=== PATIENT | male | born 1980 | race African-American/Black ===

== ENCOUNTER 2016-12-27 02:18 | Emergency (ER) | payer BC, OTHER ==
[2016-12-27] MEDS ORDERED: SODIUM CHLORIDE 0.9% 1,000 ML IV STA (03:05)
[2016-12-27] MEDS ORDERED: ONDANSETRON 4 MG/2 ML VIAL IVP STA (03:05)
[2016-12-27] MEDS ORDERED: KETOROLAC 30 MG/ML 1 ML VIAL IVP STA (03:05)
[2016-12-27 03:30] LABS: Appearance,Urine Clear (Clear); Bilirubin,Urine Negative (Negative); Glucose,Urine (UA) Negative (Negative); Ketones,Urine Negative (Negative); Leukocyte Esterase,Urine Negative (Negative); Nitrite,Urine Negative (Negative); Protein,Urine Negative (Negative); UA Billing (MACRO vs. MICRO) CHEM; Urobilinogen,Urine <2.0 mg/dL (<2.0)
[2016-12-27 03:36] LABS: Basophils % (A) 1 %; CH 29.8; CHCM 32.8; Eosinophils # (A) 0.1 k/uL (0-0.7); Eosinophils % (A) 1 %; HCT 43.7 % (39.0-53.0); HDW 2.26; HGB 14.2 gm/dL (13.0-17.5); Luc % (Auto) 3; Lymphocytes # (A) 2.3 k/uL (1.0-4.8); Lymphocytes % (A) 30 %; MCH 29.7 pg (25.0-35.0); MCHC 32.5 g/dL (31.0-37.0); MCV 91.3 fL (80.0-100.0); Mean Platelet Volume 6.5; Monocytes # (A) 0.4 k/uL (0-1.0); Monocytes % (A) 5 %; Neutrophils # (A) 4.5 k/uL (1.3-7.7); Neutrophils % (A) 60 %; RBC 4.78 m/uL (4.30-5.90); RDW 13.1 % (11.5-15.5); WBC 7.4 k/uL (3.8-10.6); WBC (Perox) 7.56
[2016-12-27 03:42] LABS: ALT 58 U/L (21-72); AST 38 U/L (17-59); Alkaline Phosphatase 68 U/L (38-126); Amylase 90 U/L (30-110); Anion Gap 11 mmol/L; Blood Urea Nitrogen 12 mg/dL (9-20); Calcium 9.2 mg/dL (8.4-10.2); Carbon Dioxide 24 mmol/L (22-30); Chloride 106 mmol/L (98-107); Glucose 93 mg/dL (74-99); Non-African American GFR(MDRD) >60 (>60 ml/min/1.73 sqM); Potassium 4.1 mmol/L (3.5-5.1); Sodium 141 mmol/L (137-145); Total Bilirubin 0.4 mg/dL (0.2-1.3); Total Protein 6.9 g/dL (6.3-8.2)
--- NOTE | 2016-12-27 03:48 | XR ---
EXAMINATION TYPE: XR KUB DATE OF EXAM: 12/27/2016 3:23 AM COMPARISON: NONE HISTORY: Right flank pain TECHNIQUE: 2 views FINDINGS: Lung bases are clear. Bowel gas pattern is normal. There is no sign of intestinal obstructi on or pneumoperitoneum. There are no pathologic calcifications over the kidneys. There is no sign of a mass. Fecal pattern is normal. IMPRESSION: Nonacute abdomen.
--- NOTE | 2016-12-27 04:01 | ED ---
Abdominal Pain HPI - General Chief Complaint: Abdominal Pain Stated Complaint: abd pain Time Seen by Provider: 12/27/16 02:46 Source: patient, RN notes reviewed Mode of arrival: ambulatory Limitations: no limitations - History of Present Illness Initial Comments: Patient is a 36 year old male with one week of right upper quadrant pain and a multiple episodes of vomiting today. Patient reports he has a hisotyr of sick contacts with similiar symptoms of vomiting. Patient has no diarrhea, fever, chils, chest pain, shortness of breath, headache. He states that he has never had this pain before. Patient denies any significant past medical history. - Related Data Previous Rx's Medication Instructions Recorded Ondansetron [Zofran] 4 mg PO Q8HR PRN #8 tab 12/27/16 Allergies Allergy/AdvReac Type Severity Reaction Status Date / Time No Known Allergies Allergy Verified 12/27/16 02:25 Review of Systems ROS Statement: Those systems with pertinent positive or pertinent negative responses have been documented in the HPI. ROS Other: All systems not noted in ROS Statement are negative. Past Medical History Past Medical History: Asthma History of Any Multi-Drug Resistant Organisms: None Reported Past Surgical History: No Surgical Hx Reported Past Psychological History: No Psychological Hx Reported Smoking Status: Current every day smoker Past Alcohol Use History: Occasional Past Drug Use History: Marijuana General Exam - General Exam Comments Initial Comments: Patient is a well appearing 36 year old male in no acute distress. Limitations: no limitations General appearance: alert, in no apparent distress Head exam: Present: atraumatic, normocephalic, normal inspection Eye exam: Present: normal appearance, PERRL, EOMI. Absent: scleral icterus, conjunctival injection, periorbital swelling ENT exam: Present: normal exam, mucous membranes moist Neck exam: Present: normal inspection. Absent: tenderness, meningismus, lymphadenopathy Respiratory exam: Present: normal lung sounds bilaterally. Absent: respiratory distress, wheezes, rales, rhonchi, stridor Cardiovascular Exam: Present: regular rate, normal rhythm, normal heart sounds. Absent: systolic murmur, diastolic murmur, rubs, gallop, clicks GI/Abdominal exam: Present: soft, normal bowel sounds. Absent: distended, tenderness, guarding, rebound, rigid Extremities exam: Present: normal inspection, full ROM, normal capillary refill. Absent: tenderness, pedal edema, joint swelling, calf tenderness Back exam: Present: normal inspection Neurological exam: Present: alert, oriented X3, CN II-XII intact Psychiatric exam: Present: normal affect, normal mood Course Vital Signs 12/27/16 12/27/16 02:24 04:16 Temperature 98.6 F 98 F Pulse Rate 90 77 Respiratory 20 18 Rate Blood Pressure 166/91 120/68 O2 Sat by Pulse 99 99 Oximetry Medical Decision Making - Medical Decision Making Patient is a 36 year old male with no significant past medical history with one week of epigastric and RUQ pain and one day of vomiting. Patient is resting comfortably in no acute distress. Patient labs and Xray are reviewed to be negative. Patient given IV toradol, Zofran, and Fluids. Patient reports pain is improved. Iadvised patient to follow up with PCP. REturn parameters discussed. Patient given Rx for zofran. Patient understands treatment plan and will comply. - Lab Data Result diagrams: 12/27/16 02:51 12/27/16 02:51 Lab Results 12/27/16 12/27/16 12/27/16 Range/Units 02:51 02:51 02:51 WBC 7.4 (3.8-10.6) k/uL RBC 4.78 (4.30-5.90) m/uL Hgb 14.2 (13.0-17.5) gm/dL Hct 43.7 (39.0-53.0) % MCV 91.3 (80.0-100.0) fL MCH 29.7 (25.0-35.0) pg MCHC 32.5 (31.0-37.0) g/dL RDW 13.1 (11.5-15.5) % Plt Count 271 (150-450) k/uL Neutrophils % 60 % Lymphocytes % 30 % Monocytes % 5 % Eosinophils % 1 % Basophils % 1 % Neutrophils # 4.5 (1.3-7.7) k/uL Lymphocytes # 2.3 (1.0-4.8) k/uL Monocytes # 0.4 (0-1.0) k/uL Eosinophils # 0.1 (0-0.7) k/uL Basophils # 0.0 (0-0.2) k/uL Sodium 141 (137-145) mmol/L Potassium 4.1 (3.5-5.1) mmol/L Chloride 106 (98-107) mmol/L Carbon Dioxide 24 (22-30) mmol/L Anion Gap 11 mmol/L BUN 12 (9-20) mg/dL Creatinine 1.10 (0.66-1.25) mg/dL Est GFR (MDRD) Af Amer >60 (>60 ml/min/1.73 sqM) Est GFR (MDRD) Non-Af >60 (>60 ml/min/1.73 sqM) Glucose 93 (74-99) mg/dL Calcium 9.2 (8.4-10.2) mg/dL Total Bilirubin 0.4 (0.2-1.3) mg/dL AST 38 (17-59) U/L ALT 58 (21-72) U/L Alkaline Phosphatase 68 (38-126) U/L Total Protein 6.9 (6.3-8.2) g/dL Albumin 3.9 (3.5-5.0) g/dL Amylase 90 (30-110) U/L Lipase 110 (23-300) U/L Urine Color Light Yellow Urine Appearance Clear (Clear) Urine pH 6.0 (5.0-8.0) Ur Specific [place] 1.010 (1.001-1.035) Urine Protein Negative (Negative) Urine Glucose (UA) Negative (Negative) Urine Ketones Negative (Negative) Urine Blood Negative (Negative) Urine Nitrate Negative (Negative) Urine Bilirubin Negative (Negative) Urine Urobilinogen <2.0 (<2.0) mg/dL Ur Leukocyte Esterase Negative (Negative) - Radiology Data Radiology results: report reviewed Interpreted by me: KUB is negative for any acute process. Disposition Clinical Impression: Gastroenteritis Disposition: HOME SELF-CARE Condition: Good Instructions: Gastroenteritis (ED) Additional Instructions: Rest, remain hydrated and follow up with primary care provider. Return to the EC if any alarming signs or symptoms occur. Prescriptions: Ondansetron [Zofran] 4 mg PO Q8HR PRN #8 tab PRN Reason: Nausea And Vomiting Referrals: Fabricio Castañeda MD [REFERRING] - 1-2 days Time of Disposition: 04:07
[2016-12-27 04:17] VITALS: BP 120/68; PULSE 77; RESP 18; TEMP 98
== END 2016-12-27 04:17 | disposition home or self-care (01) ==
LOC: EC 02:18
DX: K52.9 Noninfective gastroenteritis and colitis, unspecified (principal); R11.10 Vomiting, unspecified; F17.200 Nicotine dependence, unspecified, uncomplicated
CPT/HCPCS: 36415; 80053; 82150; 83690; 85025; 81003; 74000; 99284; 96374; 96375; 96361; J2405; J1885

== ENCOUNTER 2017-06-23 18:25 | Emergency (ER) | payer OTHER ==
[2017-06-23] MEDS ORDERED: methylPREDNISolone SOD SUCCI 125 MG/2 ML VIAL IM STA (18:38)
[2017-06-23] MEDS ORDERED: IPRATROPIUM-ALBUTEROL 3 ML NEB INHALATION STA (18:38)
--- NOTE | 2017-06-23 18:43 | ED ---
URI HPI - General Chief Complaint: Upper Respiratory Infection Stated Complaint: COLD/FLU TYPE SYMPTOMS Time Seen by Provider: 06/23/17 18:33 Source: patient, RN notes reviewed Mode of arrival: ambulatory Limitations: no limitations - History of Present Illness Initial Comments: This is a pleasant 36-year-old male presents emergency department complaining of productive cough for yellow sputum. Patient states she also is having tightness and some wheezing. Patient also has nasal congestion. Patient states that he has a nephew that is in the hospital right now with pneumonia. Patient states he has had a fever. This has been subjective. Patient is also had shaking chills. No nausea or vomiting. No abdominal pain. No problems with bowel movements or urination. No ear pain. No neck stiffness. No skin rashes or lesions. No dizziness. No lightheadedness. Patient states that he has generalized body aching as well. Patient does have a history of childhood asthma as well as a remote history of smoking. Patient states he quit some time ago - Related Data Previous Rx's Medication Instructions Recorded Albuterol Inhaler [Ventolin Hfa 2 puff INHALATION Q4HR PRN #1 06/23/17 Inhaler] inhaler Azithromycin [Zithromax Z-pack] 250 mg PO DIRECTED #6 tab 06/23/17 predniSONE 50 mg PO DAILY #5 tab 06/23/17 Allergies Allergy/AdvReac Type Severity Reaction Status Date / Time No Known Allergies Allergy Verified 12/27/16 02:25 Review of Systems ROS Statement: Those systems with pertinent positive or pertinent negative responses have been documented in the HPI. ROS Other: All systems not noted in ROS Statement are negative. Past Medical History Past Medical History: Asthma History of Any Multi-Drug Resistant Organisms: None Reported Past Surgical History: No Surgical Hx Reported Past Psychological History: No Psychological Hx Reported Smoking Status: Current every day smoker Past Alcohol Use History: Occasional Past Drug Use History: Marijuana Additional History: Patient states that he recently quit smoking General Exam - General Exam Comments Initial Comments: Well-developed, well-nourished 36-year-old male in minimal distress Limitations: no limitations General appearance: alert, in no apparent distress Head exam: Present: atraumatic, normocephalic, normal inspection Eye exam: Present: normal appearance, PERRL, EOMI, other (Airway patent, no evidence of abscess or tonsillar exudate, no adenopathy). Absent: scleral icterus, conjunctival injection, periorbital swelling ENT exam: Present: normal exam, normal oropharynx, mucous membranes moist, normal external ear exam, other (Right TM is erythematous, dull light reflex, no evidence of perforation or effusion, left ear is clear. TM is not erythematous, good light reflex and landmarks). Absent: mucous membranes dry, TM's normal bilaterally Neck exam: Present: normal inspection. Absent: tenderness, meningismus, lymphadenopathy Respiratory exam: Present: wheezes, prolonged expiratory, other (Bilateral expiratory wheezing, no evidence of accessory muscle use). Absent: respiratory distress, rales, rhonchi, stridor, chest wall tenderness, accessory muscle use Cardiovascular Exam: Present: regular rate, normal rhythm, normal heart sounds. Absent: systolic murmur, diastolic murmur, rubs, gallop, clicks GI/Abdominal exam: Present: soft, normal bowel sounds. Absent: distended, tenderness, guarding, rebound, rigid Extremities exam: Present: normal inspection, full ROM, normal capillary refill. Absent: tenderness, pedal edema, joint swelling, calf tenderness Back exam: Present: normal inspection Neurological exam: Present: alert, oriented X3, CN II-XII intact Psychiatric exam: Present: normal affect, normal mood Skin exam: Present: warm, dry, intact, normal color. Absent: rash Course Vital Signs 06/23/17 06/23/17 06/23/17 18:28 18:48 18:57 Temperature 98.9 F Pulse Rate 107 H 104 H 106 H Respiratory 20 Rate Blood Pressure 169/92 O2 Sat by Pulse 96 Oximetry - Reevaluation(s) Reevaluation #1: 06/23/17 19:21 Patient reevaluated and is doing better after the injectable corticosteroids and the DuoNeb treatment. Patient states he is breathing much easier. Medical Decision Making - Medical Decision Making Patient improved after breathing treatment and corticosteroids. Patient does have evidence of right middle ear infection. I'm going to cover the patient with antibiotics in the form of azithromycin. Chest x-ray showed no evidence of pneumonia. Patient will be given an inhaler that he can use at home. Return and follow-up parameters discussed. Case discussed with the ER attending. The patient was found to be hypertensive in the ER today. Findings were reviewed with the patient. Patient was advised to follow-up with the primary care physician for further evaluation of blood pressure. - Radiology Data Two-view chest x-ray read by me reveals no evidence of infiltrate. No evidence of pneumothorax. No effusion. No cardiomegaly. Awaiting radiology interpretation Disposition Clinical Impression: Otitis media of right ear, Asthmatic bronchitis, Hypertension, poor control Disposition: HOME SELF-CARE Condition: Stable Instructions: Bronchospasm (ED), Acute Bronchitis (ED), Otitis Media (ED) Additional Instructions: Albuterol 2 puffs every fours as needed for cough or wheezing. Finish the antibiotic as directed. Prednisone as directed. Follow-up with your regular doctor without fail in 2 days for reevaluation.Return to the ER at once if the symptoms worsen or problems or difficulties arise. Prescriptions: Albuterol Inhaler [Ventolin Hfa Inhaler] 2 puff INHALATION Q4HR PRN #1 inhaler PRN Reason: Wheezing Azithromycin [Zithromax Z-pack] 250 mg PO DIRECTED #6 tab predniSONE 50 mg PO DAILY #5 tab Referrals: Fabricio Castañeda MD [REFERRING] - 06/25/17 Time of Disposition: 19:24
[2017-06-23 19:26] LABS: Glucose,Whole Blood 107 mg/dL (75-99)
[2017-06-23 19:37] VITALS: BP 142/95; PULSE 109; RESP 20; TEMP 98.8
--- NOTE | 2017-06-23 19:38 | XR ---
EXAMINATION TYPE: XR chest 2V DATE OF EXAM: 06/23/2017 COMPARISON: Chest x-ray November 22, 2016. HISTORY: Chest pain per order. Cough congestion and fever for 5 days per patient. TECHNIQUE: Frontal and lateral views of the chest are obtained. FINDINGS: There is no focal air space opacity, pleural effusion, or pneumothorax seen. The cardiac silhouette size is within normal limits. The osseous structures are intact. IMPRESSION: No acute cardiopulmonary process. No significant change from prior.
== END 2017-06-23 19:38 | disposition home or self-care (01) ==
LOC: EC 18:25
DX: J45.909 Unspecified asthma, uncomplicated (principal); H66.91 Otitis media, unspecified, right ear; I10 Essential (primary) hypertension; F17.200 Nicotine dependence, unspecified, uncomplicated
CPT/HCPCS: 99284; 96372; 36415; 94640; 71020; J2930

== ENCOUNTER 2020-10-08 13:02 | Emergency (ER) | payer OTHER ==
[2020-10-08 13:17] VITALS: RESP 16
[2020-10-08] MEDS ORDERED: IPRATROPIUM-ALBUTEROL 3 ML NEB INHALATION STA (13:23)
--- NOTE | 2020-10-08 13:49 | ED ---
General Adult HPI - General Chief complaint: Shortness of Breath Stated complaint: SOB Time Seen by Provider: 10/08/20 13:10 Source: patient, RN notes reviewed, old records reviewed Mode of arrival: ambulatory Limitations: no limitations - History of Present Illness Initial comments: This is a 40-year-old male who presents emergency department with past medical history significant for asthma. 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 This occurred at 4:30 this morning and when he woke up he still is having hard time breathing secondary to the emergency department. Patient denies any fever chills or cough. Patient denies any chest pain or palpitations. Patient denies any abdominal pain patient denies nausea vomiting diarrhea. Patient denies any loss of taste. - Related Data Previous Rx's Medication Instructions Recorded Albuterol Inhaler (Mhu) [Ventolin 2 puff INHALATION Q4HR PRN #1 06/23/17 Hfa Inhaler (Mhu)] inhaler Azithromycin [Zithromax Z-pack (6 250 mg PO DIRECTED #6 tab 06/23/17 tabs)] predniSONE 50 mg PO DAILY #5 tab 06/23/17 Albuterol Inhaler [Ventolin Hfa 2 puff INHALATION RT-QID #2 puff 10/08/20 Inhaler] predniSONE [Deltasone] 40 mg PO DAILY #8 tab 10/08/20 Allergies Allergy/AdvReac Type Severity Reaction Status Date / Time No Known Allergies Allergy Verified 10/08/20 13:17 Review of Systems ROS Statement: Those systems with pertinent positive or pertinent negative responses have been documented in the HPI. ROS Other: All systems not noted in ROS Statement are negative. Past Medical History Past Medical History: Asthma History of Any Multi-Drug Resistant Organisms: None Reported Past Surgical History: No Surgical Hx Reported Past Psychological History: No Psychological Hx Reported Smoking Status: Current every day smoker Past Alcohol Use History: Occasional Past Drug Use History: Marijuana General Exam - General Exam Comments Initial Comments: GENERAL: Patient is well-developed and well-nourished. Patient is nontoxic and well- hydrated and is in mild distress. ENT: Neck is soft and supple. No significant lymphadenopathy is noted. Oropharynx is clear. Moist mucous membranes. Neck has full range of motion without eliciting any pain. EYES: The sclera were anicteric and conjunctiva were pink and moist. Extraocular movements were intact and pupils were equal round and reactive to light. Eyelids were unremarkable. PULMONARY: Decreased air movement CARDIOVASCULAR: There is a regular rate and rhythm without any murmurs gallops or rubs. ABDOMEN: Soft and nontender with normal bowel sounds. SKIN: Skin is clear with no lesions or rashes and otherwise unremarkable. NEUROLOGIC: Patient is alert and oriented x3. Cranial nerves II through XII are grossly intact. Motor and sensory are also intact. Normal speech, volume and content. Symmetrical smile. MUSCULOSKELETAL: Normal extremities with adequate strength and full range of motion. No lower extremity swelling or edema. No calf tenderness. LYMPHATICS: No significant lymphadenopathy is noted PSYCHIATRIC: Normal psychiatric evaluation. Limitations: no limitations Course Vital Signs 10/08/20 10/08/20 10/08/20 13:13 13:37 13:55 Temperature 98.4 F Pulse Rate 96 88 88 Respiratory 16 Rate Blood Pressure 143/100 O2 Sat by Pulse 95 Oximetry Medical Decision Making - Medical Decision Making Patient received 2 breathing treatments and was feeling considerably better I walked into the room he was in no respiratory distress and he was sleeping. I listened to his lungs and they were moving more air and again the patient felt much closer to his baseline Disposition Clinical Impression: Asthma exacerbation Disposition: HOME SELF-CARE Instructions (If sedation given, give patient instructions): Asthma (ED) Prescriptions: predniSONE [Deltasone] 40 mg PO DAILY #8 tab Albuterol Inhaler [Ventolin Hfa Inhaler] 2 puff INHALATION RT-QID #2 puff Is patient prescribed a controlled substance at d/c from ED?: No Referrals: None,Stated [Primary Care Provider] - 1-2 days Time of Disposition: 14:20
[2020-10-08] MEDS ORDERED: predniSONE 50 MG TAB PO STA (14:21)
[2020-10-08 14:32] VITALS: BP 138/96; PULSE 92; TEMP 98
== END 2020-10-08 14:31 | disposition home or self-care (01) ==
LOC: EC 13:02
DX: J45.901 Unspecified asthma with (acute) exacerbation (principal); F17.200 Nicotine dependence, unspecified, uncomplicated
CPT/HCPCS: 94640; 99285; J7512

== ENCOUNTER 2021-09-29 18:36 | Emergency (ER) | payer OTHER ==
[2021-09-29 19:34] VITALS: BP 158/120; PULSE 86; RESP 20; TEMP 98.1
--- NOTE | 2021-09-29 19:34 | ED ---
General Adult HPI - General Chief complaint: Recheck/Abnormal Lab/Rx Stated complaint: Sent by employer for drug testing Source: patient Mode of arrival: ambulatory Limitations: no limitations - History of Present Illness Initial comments: 41-year-old male presents to the emergency department for drug testing. Patient drives a [employer]. States that some parts accidentally fell off of his [employer] and due to this he was informed that he needed to come to the hospital for drug testing. He denies any injuries from the incident. - Related Data Previous Rx's Medication Instructions Recorded Albuterol Inhaler (Mhu) [Ventolin 2 puff INHALATION Q4HR PRN #1 06/23/17 Hfa Inhaler (Mhu)] inhaler Azithromycin [Zithromax Z-pack (6 250 mg PO DIRECTED #6 tab 06/23/17 tabs)] predniSONE 50 mg PO DAILY #5 tab 06/23/17 Albuterol Inhaler [Ventolin Hfa 2 puff INHALATION RT-QID #2 puff 10/08/20 Inhaler] predniSONE [Deltasone] 40 mg PO DAILY #8 tab 10/08/20 Allergies Allergy/AdvReac Type Severity Reaction Status Date / Time No Known Allergies Allergy Verified 09/29/21 19:17 Review of Systems ROS Statement: Those systems with pertinent positive or pertinent negative responses have been documented in the HPI. ROS Other: All systems not noted in ROS Statement are negative. Past Medical History Past Medical History: Asthma History of Any Multi-Drug Resistant Organisms: None Reported Past Surgical History: No Surgical Hx Reported Past Psychological History: No Psychological Hx Reported Smoking Status: Current every day smoker Past Alcohol Use History: Occasional Past Drug Use History: Marijuana General Exam Limitations: no limitations Course Vital Signs 09/29/21 19:17 Temperature 98.1 F Pulse Rate 86 Respiratory 20 Rate Blood Pressure 158/120 O2 Sat by Pulse 100 Oximetry Medical Decision Making - Medical Decision Making Upon arrival the patient was evaluated in triage. He is given the proper supplies to complete a drug test. Patient will be discharged home at this time. Informed that he does have high blood pressure needs to follow-up with his primary care doctor for further evaluation of this. Patient understood. Given written and verbal discharge instructions and discharged home in stable condition Disposition Clinical Impression: Encounter for drug screening Disposition: HOME SELF-CARE Condition: Stable Instructions (If sedation given, give patient instructions): Normal Exam (ED) Additional Instructions: Your results will be sent to your employer. Please return to the emergency room for any new or worsening symptoms Is patient prescribed a controlled substance at d/c from ED?: No Referrals: None,Stated [Primary Care Provider] - 1-2 days Time of Disposition: 19:32
== END 2021-09-29 19:35 | disposition home or self-care (01) ==
LOC: EC 18:36
DX: Z02.83 Encounter for blood-alcohol and blood-drug test (principal); J45.909 Unspecified asthma, uncomplicated; F17.200 Nicotine dependence, unspecified, uncomplicated; F12.90 Cannabis use, unspecified, uncomplicated; Z79.52 Long term (current) use of systemic steroids; Z79.51 Long term (current) use of inhaled steroids
CPT/HCPCS: 99282

== ENCOUNTER 2023-07-15 22:43 | Emergency (ER) | payer OTHER ==
[2023-07-15 22:52] VITALS: BP 140/84; PULSE 81; RESP 18; TEMP 98.5
[2023-07-15] MEDS ORDERED: HYDROcodone/APAP 5-325MG 1 EACH TAB PO STA (23:04)
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
--- NOTE | 2023-07-15 23:55 | XR ---
EXAMINATION TYPE: XR hand complete 3 views RT, XR tibia fibula 2 views RT DATE OF EXAM: 07/15/2023 COMPARISON: NONE HISTORY: 42-year-old male with pain after fall injury FINDINGS: Right hand: There is mild degenerative spurring at the first and second MCP joints. Mild degenerative spurring fi rst CMC and triscaphe joints as well. Air is subtle vertically oriented lucency at the base of the fi fth metacarpal versus projectional artifact. Acute fracture, subluxation, dislocation. Right tibia/fibula: Chronic corticated fragmentation at the tibial tuberosity, possible sequela of osteoarthritis disease . Ankle and knee articulations grossly intact. The medial aspect of the right knee demonstrates Pelle grini-Stieda. No acute fracture is seen. IMPRESSION: 1. Right hand: Very mild scattered degenerative spurring as mentioned above. Subtle vertically orient ed lucency at the fifth metacarpal based; likely projectional artifact in the absence of any focal pa in here. Correlate for point tenderness to exclude a subtle nondisplaced fracture. 2. Right tibia/fibula: Previous Hazel-Schlatter's disease and Elvie-Stieda at the knee. No acut e osseous abnormality seen.
== END 2023-07-16 01:31 | disposition home or self-care (01) ==
LOC: EC 22:43
DX: S62.309A Unspecified fracture of unspecified metacarpal bone, initial encounter for closed fracture (principal); J45.909 Unspecified asthma, uncomplicated; F17.200 Nicotine dependence, unspecified, uncomplicated; F12.90 Cannabis use, unspecified, uncomplicated; W19.XXXA Unspecified fall, initial encounter
CPT/HCPCS: 29125; 99283